=== PATIENT | male | born 1955 | race Caucasian/White ===

== ENCOUNTER 2023-08-19 15:39 | Outpatient (REF) | payer BC, SELFPAY ==
[2023-08-21 11:07] LABS: Lyme Ab w Rflx to Lyme Confirm Negative (Negative)
== END 2023-08-19 15:40 | disposition home or self-care (01) ==
LOC: LBN 15:39
PROVIDERS: PCP General Practice; Visit Provider Physician Assistant Medical
DX: S60.561A Insect bite (nonvenomous) of right hand, initial encounter (principal); W57.XXXA Bitten or stung by nonvenomous insect and other nonvenomous arthropods, initial encounter; X58.XXXA Exposure to other specified factors, initial encounter
CPT/HCPCS: 86618